=== PATIENT | male | born 1985 | race Caucasian/White ===

== ENCOUNTER 2020-08-20 10:50 | Emergency (ER) | payer MEDICAID ==
[~2020-08-20] VITALS: Ht 185.4 cm; Wt 90.7 kg
[2020-08-20 11:09] VITALS: BP 139/84
--- NOTE | 2020-08-20 11:10 | NUR ---
THE PATIENT BIBS FOR C/O "SPIDER BITE" RIGHT CALF LAST NIGHT. WILL CONTINUE TO MONITOR THE PATIENT.
[2020-08-20] MEDS ORDERED: SULF1TAB48 PO (11:23)
[2020-08-20] MEDS ORDERED: SULFAMETH/TRIMETH 800/160 MG 1 UDTAB TABLET ONE (11:44)
[2020-08-20] MEDS: SULFAMETH/TRIMETH 800/160 MG 1 UDTAB TABLET PO ONE (11:46)
--- NOTE | 2020-08-20 11:50 | NUR ---
CALLED [facility] [phone]
--- NOTE | 2020-08-20 11:55 | NUR ---
CHERYL FROM [facility] SPEAKING WITH DR. FRENCH
[2020-08-20] MEDS: IV NS 0.9% 1,000 ML BAG IV ONE (12:06)
[2020-08-20 12:12] LABS: CALCIUM, SERUM 8.7 mg/dL (8.5-10.1); CARBON DIOXIDE 30 mmol/L (21-32); CHLORIDE 101 mmol/L (98-107); CREATININE 1.2 mg/dL (0.6-1.3); GLUCOSE 85 mg/dL (74-106); POTASSIUM 4.2 mmol/L (3.5-5.1); SODIUM SERUM 137 mmol/L (136-145); UREA NITROGEN, BLOOD 14 mg/dL (7-18)
[2020-08-20 12:17] LABS: ALANINE AMINOTRANSFERASE 37 U/L (12-78); ALBUMIN 3.7 g/dL (3.4-5.0); ALKALINE PHOSPHATASE 80 U/L (46-116); ASPARTATE AMINOTRANSFERASE 39 U/L (15-37); BILIRUBIN,DIRECT 0.2 mg/dL (0.0-0.2); BILIRUBIN,TOTAL 0.7 mg/dL (0.2-1.0); LIPASE 91 U/L (73-393); TOTAL PROTEIN, SERUM 7.2 g/dL (6.4-8.2)
[2020-08-20 12:57] LABS: BASOPHILS # (AUTO) 0.1 /CMM (0.0-0.2); BASOPHILS % (AUTO) 0.6 % (0.0-2.0); EOSINOPHILS % (AUTO) 3.2 % (0.0-6.0); HEMATOCRIT 48 % (39-51); HEMOGLOBIN 16.1 g/dL (13.5-17.5); LYMPHOCYTES # (AUTO) 1.3 /CMM (0.8-4.8); MEAN CORPUSCULAR HGB CONC 34 g/dl (31.0-36.0); MEAN CORPUSCULAR VOLUME 91 fL (80-96); MONOCYTES # (AUTO) 0.7 /CMM (0.1-1.30); MONOCYTES % (AUTO) 7.8 % (2.0-12.0); NEUTROPHILS # (AUTO) 6.4 /CMM (1.8-8.9); NEUTROPHILS % (AUTO) 73.4 % (43.0-81.0); PLATELET COUNT (AUTO) 206 /CMM (150-450); RED BLOOD CELL COUNT(AUTO) 5.27 MIL/uL (4.5-6.0); WHITE BLOOD COUNT (AUTO) 8.8 K/uL (4.3-11.0)
[2020-08-20] MEDS ORDERED: KETOROLAC TROMETHAMINE INJ 30 MG/ML VIAL ONE (13:28)
[2020-08-20] MEDS: KETOROLAC TROMETHAMINE INJ 30 MG/ML VIAL IV ONE (13:33)
[2020-08-20] MEDS ORDERED: CEPH500C2 PO (13:54)
[2020-08-20] MEDS ORDERED: IBUP-1955 PO (13:54)
[2020-08-20] MEDS ORDERED: TRAM50TA2 PO (13:54)
--- NOTE | 2020-08-20 14:12 | NUR ---
The patient is alert and oriented x4. Patient discharged to home in stable condition. Written and verbal after care instructions given. Patient verbalizes understanding of instruction.
== END 2020-08-20 14:13 | disposition home or self-care (01) ==
LOC: ER 11:04
DX: L03.115 Cellulitis of right lower limb (principal); J45.909 Unspecified asthma, uncomplicated
CPT/HCPCS: 36415; 71045; 80048; 80076; 82550; 82553; 83690; 84484; 85025; 93005; 96361; 96374; 99285; J1885; J7030

== ENCOUNTER 2023-10-16 00:43 | Emergency (ER) | payer OTHER, MEDICAID ==
[~2023-10-16] VITALS: Ht 177.8 cm; Wt 77.1 kg
[~2023-10-16 00:43] MED LIST: CEPH500C2 PO; IBUP-1955 PO; SULF1TAB48 PO; TRAM50TA2 PO
--- NOTE | 2023-10-16 01:53 | NUR ---
BIBSELF CO NAUSEA VOMITING AND DIARRHEA X 3 DAYS
--- NOTE | 2023-10-16 02:15 | NUR ---
COVID SAMPLE SENT LAB
[2023-10-16] MEDS ORDERED: PANTOPRAZOLE 40 MG VIAL ONE (02:28)
[2023-10-16] MEDS ORDERED: MORPHINE SULFATE INJ 4 MG/ML DISP.SYRIN ONE (02:29)
[2023-10-16] MEDS ORDERED: ONDANSETRON HCL/PF 4 MG/2 ML VIAL ONE (02:29)
[2023-10-16] MEDS: PANTOPRAZOLE 40 MG VIAL IV ONE (02:30)
[2023-10-16] MEDS: IV NS 0.9% 1,000 ML BAG IV ONE (02:30)
[2023-10-16] MEDS: ONDANSETRON HCL/PF 4 MG/2 ML VIAL IVP ONE (02:30)
[2023-10-16] MEDS: MORPHINE SULFATE INJ 2 MG/ML DISP.SYRIN IV ONE (02:30)
[2023-10-16 02:31] LABS: BASOPHILS % (AUTO) 0.4 % (0.0-2.0); EOSINOPHILS % (AUTO) 0.4 % (0.0-6.0); HEMATOCRIT 50 % (39-51); HEMOGLOBIN 17.2 g/dL (13.5-17.5); LYMPHOCYTES # (AUTO) 1.1 K/uL (0.8-4.8); LYMPHOCYTES % (AUTO) 13.2 % (20.0-44.0); MEAN CORPUSCULAR HEMOGLOBIN 31 PG (26.0-33.0); MEAN CORPUSCULAR HGB CONC 35 g/dl (31.0-36.0); MEAN CORPUSCULAR VOLUME 89 fL (80-96); MONOCYTES # (AUTO) 0.5 K/uL (0.1-1.30); MONOCYTES % (AUTO) 6.4 % (2.0-12.0); NEUTROPHILS # (AUTO) 6.7 K/uL (1.8-8.9); NEUTROPHILS % (AUTO) 79.6 % (43.0-81.0); PLATELET COUNT (AUTO) 174 K/uL (150-450); RED BLOOD CELL COUNT(AUTO) 5.59 MIL/uL (4.5-6.0); RED CELL DISTRIBUTION WIDTH 12.3 % (11.5-15.0); WHITE BLOOD COUNT (AUTO) 8.5 K/uL (4.3-11.0)
--- NOTE | 2023-10-16 02:36 | NUR ---
blood collected sent to lab.
--- NOTE | 2023-10-16 02:39 | NUR ---
pt taken to ct via rnancy.
--- NOTE | 2023-10-16 02:41 | NUR ---
pt back to from ct.
[2023-10-16 02:43] LABS: CALCIUM, SERUM 8.7 mg/dL (8.5-10.1); CREATININE 1.1 mg/dL (0.6-1.3); POTASSIUM 4.2 mmol/L (3.5-5.1)
[2023-10-16 02:48] LABS: ALBUMIN 3.6 g/dL (3.4-5.0); BILIRUBIN,DIRECT 0.2 mg/dL (0.0-0.2); BILIRUBIN,TOTAL 0.6 mg/dL (0.2-1.0); TOTAL PROTEIN, SERUM 7.7 g/dL (6.4-8.2)
[2023-10-16] MEDS ORDERED: METOCLOPRAMIDE HCL 10 MG/2 ML VIAL ONE (03:14)
[2023-10-16] MEDS ORDERED: diphenhydrAMINE HCL 50 MG/ML VIAL ONE (03:14)
[2023-10-16] MEDS: METOCLOPRAMIDE HCL 10 MG/2 ML VIAL IV ONE (03:15)
[2023-10-16] MEDS: diphenhydrAMINE HCL 50 MG/ML VIAL IV ONE (03:15)
[2023-10-16] MEDS ORDERED: HALOPERIDOL LACTATE INJ 5 MG/ML VIAL ONE (03:33)
[2023-10-16] MEDS: HALOPERIDOL LACTATE INJ 5 MG/ML VIAL IM ONE (03:33)
--- NOTE | 2023-10-16 03:40 | NUR ---
Sánchez jin in [facility] - 10/16/23 at 0341 by NORIS chipid swab sent to lab
[2023-10-16] MEDS ORDERED: ONDA4TAB5 PO (03:56)
[2023-10-16 05:01] VITALS: BP 138/86; TEMP 97.9; O2SAT 93
--- NOTE | 2023-10-16 05:01 | NUR ---
Patient discharged to home in stable condition. Written and verbal after care instructions given. Patient verbalizes understanding of instruction.IV removed. Catheter intact and site benign. Pressure and 4x4 applied to site. No bleeding noted.
== END 2023-10-16 05:02 | disposition home or self-care (01) ==
LOC: ER 00:45
DX: R11.2 Nausea with vomiting, unspecified (principal); R19.7 Diarrhea, unspecified; R51.9 Headache, unspecified; R10.10 Upper abdominal pain, unspecified; J45.909 Unspecified asthma, uncomplicated; Z20.822 Contact with and (suspected) exposure to COVID-19
CPT/HCPCS: 99285; 70450; 96374; 96375; 71045; 96361; 87426; 96372; 74176; 85025; 80048; 83690; 80076; 36415; J1200; J1630; J2270; J2765; J2405; J7030 ×2; J2470